=== PATIENT | female | born 1980 | race Caucasian/White ===

== ENCOUNTER 2022-04-07 05:39 | Emergency (ER) | payer OTHER ==
[~2022-04-07] VITALS: Ht 162.6 cm; Wt 71.7 kg
[2022-04-07 06:15] LABS: BASOPHILS % (AUTO) 0.4 % (0.0-5.0); EOSINOPHILS % (AUTO) 0.4 % (0.0-8.0); HEMATOCRIT 40.8 % (36-48); LYMPHOCYTES % (AUTO) 10.3 % (21.0-51.0); MEAN CORPUSCULAR HEMOGLOBIN 32.3 pg (27.0-33.0); MEAN CORPUSCULAR HGB CONC 34.1 g/dL (32.0-36.0); MEAN CORPUSCULAR VOLUME 94.9 fL (79-99); MONOCYTES % (AUTO) 8.5 % (3.0-13.0); PLATELET COUNT (AUTO) 280 K/uL (130-400); WHITE BLOOD COUNT (AUTO) 13.7 K/uL (4.8-10.8)
[2022-04-07 06:23] LABS: APPEARANCE,URINE CLEAR (CLEAR); BILIRUBIN,URINE NEGATIVE (NEGATIVE); COLOR,URINE YELLOW (YELLOW); GLUCOSE, URINE (UA) 100 mg/dL (NEGATIVE); KETONES,URINE NEGATIVE (NEGATIVE); LEUKOCYTE ESTERASE ,URINE NEGATIVE (NEGATIVE); NITRATE,URINE NEGATIVE (NEGATIVE); OCCULT BLOOD,URINE NEGATIVE (NEGATIVE); PH,URINE 6.5 (5.0-8.0); PROTEIN,URINE NEGATIVE (NEGATIVE); UROBILINOGEN,URINE 0.2 mg/dL (0.2-1.0)
[2022-04-07] MEDS ORDERED: LOPERAMIDE HCL 2 MG CAP PO ONE (06:30)
[2022-04-07] MEDS ORDERED: 0.9%NACL 1000ML 1,000 ML IV ONE (06:30)
[2022-04-07] MEDS ORDERED: DICYCLOMINE HCL 20 MG TAB PO SCH (06:30)
[2022-04-07] MEDS ORDERED: KETOROLAC 15MG/ML VIAL (15MG/ML) IV ONE (06:30)
[2022-04-07 06:32] LABS: ALBUMIN 4.4 g/dL (3.5-5.0); BILIRUBIN,TOTAL 0.8 mg/dL (0.2-1.0); CREATININE 0.8 mg/dL (0.5-1.5); POTASSIUM 3.8 mmol/L (3.5-5.1); TOTAL PROTEIN, SERUM 8.2 g/dL (6.0-8.3)
[2022-04-07 06:35] LABS: RBC,URINE 0-1 /HPF (0-1); WBC,URINE 0-1 /HPF (0-1)
[2022-04-07 06:36] LABS: BACTERIA,URINE Few /HPF (None Seen)
[2022-04-07 06:59] VITALS: BP 134/73
[2022-04-07] MEDS ORDERED: LEVOFLOXACIN 500 MG TABLET PO SCH (07:00)
[2022-04-07] MEDS ORDERED: IBUP-2070 PO (07:02)
[2022-04-07] MEDS ORDERED: DICY10 PO (07:02)
== END 2022-04-07 07:21 | disposition home or self-care (01) ==
LOC: EDH 05:39
DX: R50.9 Fever, unspecified (principal); R19.7 Diarrhea, unspecified; Z88.0 Allergy status to penicillin; Z98.890 Other specified postprocedural states
CPT/HCPCS: 36415; 80053; 81001; 83690; 85025; 96361; 96374; 99284; J1885; J7030